=== PATIENT | male | born 1990 | race Caucasian/White ===

== ENCOUNTER 2016-11-07 21:35 | Emergency (ER) | payer OTHER ==
[~2016-11-07 21:35] MED LIST: AUGMENTIN 875-1 EAC1 PO; NORCO 5/3251 TA2 PO; ZOFRAN4 M1 PO
[2016-11-07] MEDS ORDERED: IBUPROFEN800 M1 PO (22:39)
[2016-11-07] MEDS ORDERED: NORCO 5/3251 TAB PO (22:39)
== END 2016-11-07 23:07 ==
LOC: EDMED 21:35
DX: S43.101A Unspecified dislocation of right acromioclavicular joint, initial encounter (principal); V00.131A Fall from skateboard, initial encounter; Y93.51 Activity, roller skating (inline) and skateboarding; Y92.410 Unspecified street and highway as the place of occurrence of the external cause; Y99.8 Other external cause status